=== PATIENT | male | born 1995 | race African-American/Black ===

== ENCOUNTER 2016-07-04 07:29 | Emergency (ER) | payer OTHER ==
[~2016-07-04] VITALS: Ht 175.3 cm; Wt 115.7 kg
[2016-07-04] MEDS ORDERED: ETOMIDATE IV SOLN 20 MG/10 ML VIAL ONE (07:40)
--- NOTE | 2016-07-04 07:45 | ED Lower Extremity ---
General Stated Complaint: KNEE PAIN Source: patient, EMS Exam Limitations: no limitations History of Present Illness Time seen by provider: 07:41 Initial Comments Slipped and twisted left knee at work. He dislocated his left patella. He has a history of bilateral patellar dislocations. He was unable to reduce it by himself. EMS was summoned. He received 200 g of fentanyl in route. He arrives in significant distress. No other injury. Constitutional: no symptoms reported Musculoskeletal: joint pain Past Disepgb-Hkchvr-Thwyni Hx Patient Social History Alcohol Use: Denies Use Reviewed Nursing Assessment Reviewed/Agree w Nursing PMH: Yes Physical Exam Vital Signs Capillary Refill : General Appearance: WD/WN obese Neck: supple Cardiovascular: regular rate, rhythm Respiratory: normal breath sounds no respiratory distress Gastrointestinal: soft Knees: left knee deformity (patella is laterally dislocated), left knee other ( knee is held in flexion) Ankles: bilateral ankle normal inspection Neurologic/Tendon: normal sensation Neurologic/Psychiatric: alert normal mood/affect Skin: normal color warm/dry Patient Education: Explained Benefits, Explained Risks Agreement on procedure with pt: Yes Breath Sounds per Auscultation: Clear Heart Sounds per Auscultation: Regular Airway Exam: Mouth opens >2 fingers, Neck Full Range of Motion, Visulation of Uvula Sedation Adminstration Time: 05:00 Total Time spent in CS 10 minutes Splinting and Joint Reduction : Pre-Proc Neuro Vasc Exam: normal Post-Proc Neuro Vasc Exam: normal Joint Reduction Site: patella (L) Pre-Procedure NV Exam: Yes post joint reduction film: no fracture seen Immobilizers: Flexion Limit Knee Long Progress/Results/Core Measures Results/Orders My Orders Orders-MALLIKA UNGER MD Etomidate Injection (Amidate Injection) (07/04/16 07:40) Knee, Left, 3 Views (07/04/16 08:02) Knee, Left, 2 Views (Ap & Lat) (07/04/16 08:10) Progress Note : Time: 08:13 Progress Note Under conscious sedation with etomidate left knee was easily reduced. Placed in the immobilizer. Departure Impression Impression: Primary Impression: Dislocation of left patella Disposition: 01 HOME, SELF-CARE Condition: Stable Departure-Patient Inst. Decision time for Depature: 08:14 Referrals: BECCA RICARDO DO Patient Instructions: DISLOCATED-JOINT Add. Discharge Instructions: Wear knee immobilizer for next week. Do quadriceps strengthening exercises. Follow up with orthopedist as soon as possible. Dr. RICARDO is production assembly operator MALLIKA UNGER MD Jul 04, 2016 07:45
--- NOTE | 2016-07-04 08:34 | Diagnostic Imaging Report ---
INDICATION: Post reduction. TECHNIQUE: Two views of the left knee. CORRELATION STUDY: None. FINDINGS: The examination is compromised by overlying splint material. The alignment overall appears to be relatively anatomic; however, there is a slightly high riding and laterally positioned patella. In addition, there is some bone fragmentation at the level of the ischial tuberosity. This does raise concern for a quadriceps tendon injury. Edema is noted anteriorly. The medial and lateral femorotibial compartments demonstrate minimal narrowing but are otherwise unremarkable. IMPRESSION: High riding slightly laterally positioned patella along with bone fragmentation at the ischial tuberosity raising concern for an injury to the quadriceps tendon. Dictated by: Dictated on workstation # [id number]
[2016-07-04 08:42] VITALS: BP 142/85
== END 2016-07-04 08:42 | disposition home or self-care (01) ==
LOC: ER 07:31
DX: S83.092A Other subluxation of left patella, initial encounter (principal); X58.XXXA Exposure to other specified factors, initial encounter; Y92.59 Other trade areas as the place of occurrence of the external cause; Y99.0 Civilian activity done for income or pay
CPT/HCPCS: 73560; 93041

== ENCOUNTER 2017-06-04 08:25 | Emergency (ER) | payer OTHER ==
[~2017-06-04] VITALS: Ht 175.3 cm; Wt 117.9 kg
--- NOTE | 2017-06-04 08:50 | ED Lower Extremity ---
General Chief Complaint: Lower Extremity Stated Complaint: FALL,KNEE PAIN Source: patient, EMS Exam Limitations: no limitations History of Present Illness Time seen by provider: 08:35 Initial Comments Here with report of right knee pain. States that he was walking at work when he slipped and felt like his knee dislocated. And the way he describes it though, patient states that it locked and he couldn't bend it. EMS was called and on them moving it to the cot, his leg was straightened and then he felt it pop and was able to move it afterwards. Pain initially was moderate but he declined pain medicine and it has gotten better now. States he has this problem occasionally with both knees. He does wear [id number] knee brace as bilaterally. Denies other injury. He has had orthopedic evaluation of the left knee and wound was prescribed physical therapy. Onset: just prior to arrival (approximately 30 minutes ago) Severity: moderate Pain/Injury Location: right knee Method of Injury: fell, twisted Modifying Factors: Improves With Immobilization, Worse With Movement Allergies and Home Medications Allergies Coded Allergies: No Known Drug Allergies (Unverified , 07/04/16) Home Medications No Active Prescriptions or Reported Meds Constitutional: see HPI, No chills, No fever Respiratory: no symptoms reported Cardiovascular: no symptoms reported Gastrointestinal: no symptoms reported Musculoskeletal: see HPI, joint pain, No joint swelling, No muscle pain Skin: no symptoms reported (he is orders were negative and he is the physician have a contrast of) Psychiatric/Neurological: No Symptoms Reported All Other Systems Reviewed Negative Unless Noted: Yes Past Cbtoerk-Uvwcxa-Qujqxh Hx Patient Social History Alcohol Use: Denies Use Recreational Drug Use: No Recent Hopitalizations: No Immunizations Up To Date Tetanus Booster (TDap): Less than 5yrs Seasonal Allergies Seasonal Allergies: No Surgeries History of Surgeries: Yes (he) Respiratory History of Respiratory Disorde: No ( would need we needed to let her entire the lower) Cardiovascular History of Cardiac Disorders: No Neurological History of Neurological Disord: No Musculoskeletal History of Musculoskeletal Dis: Yes (chronic knee problems bilateral) Reviewed Nursing Assessment Reviewed/Agree w Nursing PMH: Yes Family Medical History Significant Family History: No Pertinent Family Hx Physical Exam Vital Signs Vital Sign - Last 12Hours 06/04/17 08:28 Temp 99.2 Pulse 112 Resp 18 B/P (MAP) 152/90 (110) Pulse Ox 98 O2 Delivery Room Air Capillary Refill : General Appearance: WD/WN, no apparent distress Cardiovascular: regular rate, rhythm, no murmur Respiratory: lungs clear, normal breath sounds Knees: right knee non-tender, right knee normal inspection, right knee normal range of motion, right knee no evidence of injury, right knee other (negative drawer. Negative medial or lateral laxity. No pain on range of motion. Patient able to lift and hold leg off the bed in straight leg position.) Neurologic/Psychiatric: alert, oriented x 3 Skin: normal color, warm/dry Patient Education: Explained Benefits, Explained Risks Breath Sounds per Auscultation: Clear Heart Sounds per Auscultation: Regular Airway Exam: Mouth opens >2 fingers, Neck Full Range of Motion, Visulation of Uvula Sedation Adminstration Time: 0500 Progress/Results/Core Measures Results/Orders My Orders Orders - MICKEY LOVE MD Knee, Right, 3 Views (06/04/17 08:37) Vital Signs/I&O Vital Sign - Last 12Hours 06/04/17 08:28 Temp 99.2 Pulse 112 Resp 18 B/P (MAP) 152/90 (110) Pulse Ox 98 O2 Delivery Room Air Progress Note : Progress Note Seen and evaluated. X-ray right knee ordered due to recent trauma. Patient's pain has improved and declines pain medicine. Monitor patient. 1025: Patient able to walk without difficulty and or pain. Question of subluxed patella on x- ray. Patient has full range of motion and does not appear to be subluxed on physical exam. Patient instructed to follow-up with orthopedist for further evaluation related to his knee. Discharged home with return precautions. Patient verbalize understanding instructions and agreement with plan. Diagnostic Imaging Diagonstic Imaging: Xray Plain Films/CT/US/NM/MRI: knee Comments VIA [facility], [facility]. [place], [place] NAME: MICHA PLUMMER MED REC#: [id number] PT STATUS: REG ER : 1995 PHYSICIAN: MICKEY LOVE MD ADMIT DATE: 06/04/17/ER Draft Date of Exam:06/04/17 KNEE, RIGHT, 3 VIEWS EXAMINATION: Right knee, three views. COMPARISON: None. HISTORY: 21-year-old male, fall. Right knee pain. FINDINGS: The patella appears laterally subluxed. There is no identified acute fracture. There is no identified knee joint effusion. There is moderate to severe patellofemoral compartment joint space loss with small patellofemoral compartment osteophytes. There is degenerative type enthesopathy at the insertion of the distal quadriceps tendon. The medial and lateral compartment joint spaces well preserved. IMPRESSION: 1. The patella appears subluxed laterally. 2. No identified acute fracture. 3. No large knee joint effusion. 4. Advanced patellofemoral compartment osteoarthritis, particularly considering patient age. Dictated on workstation # [id number] Dict: 06/04/17912 Trans: 06/04/17917 [facility] [id number] Interpreted by: SUZETTE LINARES MD Electronically signed by: Departure Impression Impression: Primary Impression: Internal derangement of right knee Additional Impression: Dislocation of patella, right, closed Qualified Codes: S83.004A - Unspecified dislocation of right patella, initial encounter Disposition: HOME, SELF-CARE Condition: Improved Departure-Patient Inst. Decision time for Depature: 10:31 Referrals: NO,LOCAL PHYSICIAN (PCP) Primary Care Physician MARIAM SIDHU MD Patient Instructions: Knee Sprain (DC) Add. Discharge Instructions: All discharge instructions reviewed with patient and/or family. Voiced understanding. Follow-up with Dr. Sidhu or the orthopedist of your choice in a few days for recheck and further evaluation. Follow-up with occupational health today. Return for worsening, fever, vomiting, weakness, breathing problems or other concerns as needed. You may continue to use your knee braces as needed for comfort. You may use ibuprofen 800 mg every 8 hours as needed for pain. You may use Tylenol 1000 mg every 8 hours as needed for pain. Scripts No Active Prescriptions or Reported Meds MICKEY LOVE MD Jun 04, 2017 08:50
--- NOTE | 2017-06-04 09:18 | Diagnostic Imaging Report ---
EXAMINATION: Right knee, three views. COMPARISON: None. HISTORY: 21-year-old male, fall. Right knee pain. FINDINGS: The patella appears laterally subluxed. There is no identified acute fracture. There is no identified knee joint effusion. There is moderate to severe patellofemoral compartment joint space loss with small patellofemoral compartment osteophytes. There is degenerative type enthesopathy at the insertion of the distal quadriceps tendon. The medial and lateral compartment joint spaces well preserved. IMPRESSION: 1. The patella appears subluxed laterally. 2. No identified acute fracture. 3. No large knee joint effusion. 4. Advanced patellofemoral compartment osteoarthritis, particularly considering patient age. Dictated by: Dictated on workstation # [id number]
[2017-06-04 11:03] VITALS: BP 149/98
== END 2017-06-04 10:45 | disposition home or self-care (01) ==
LOC: EDUNIT# 08:25 → ER 08:26
DX: S83.004A Unspecified dislocation of right patella, initial encounter (principal); W01.0XXA Fall on same level from slipping, tripping and stumbling without subsequent striking against object, initial encounter
CPT/HCPCS: 73562; 99283